=== PATIENT | male | born 1965 | race Caucasian/White ===

== ENCOUNTER 2017-02-04 22:55 | Emergency (ER) | payer OTHER ==
[~2017-02-04] VITALS: Ht 182.9 cm; Wt 117.9 kg
[~2017-02-04 22:55] MED LIST: AZITHROMYCIN250 MG PO; GUAIFENESIN-CO118 ML PO; IBUPROFEN600 MG PO; NORCO 5-325 TA1 EACH PO; OLANZAPINE20 MG PO; OMEPRAZOLE20 MG PO; PROVENTIL HFA6.7 GM INH; RISPERDAL1 MG PO; RISPERIDONE0.5 MG PO; SUCRALFATE1 GM PO; TRAMADOL HCL50 MG PO; WELLBUTRIN SR100 MG PO; ZITHROMAX250 MG PO; [UNRECOGNIZED DRUG - OTHER]
--- NOTE | 2017-02-05 06:44 | EKG ---
[facility] [address] [facility] [place] [address] Signed Sinus rhythm with premature atrial complexes Otherwise normal ECG No previous ECGs available Confirmed by FARHAT CONNELLY MD ([id number]) on 02/05/2017 6:44:06 AM Electronically Signed By: FARHAT CONNELLY MD 02/05/17 0644 PATIENT NAME: GLENDA OBRIEN Electrocardiogram DATE OF : 63 PHYSICIAN: FARHAT CONNELLY MD REPORT #: [id number] REPORT IS CONFIDENTIAL AND NOT TO BE RELEASED WITHOUT AUTHORIZATION
--- NOTE | 2017-02-05 14:50 | EKG ---
[facility] [address] [facility] [place] [address] Signed Normal sinus rhythm Normal ECG When compared with ECG of 04-FEB-2017 23:12, premature atrial complexes are no longer present Confirmed by FARHAT CONNELLY MD ([id number]) on 02/05/2017 2:50:18 PM Electronically Signed By: FARHAT CONNELLY MD 02/05/17 1450 PATIENT NAME: GLENDA OBRIEN MARY ANN Electrocardiogram DATE OF : 63 PHYSICIAN: FARHAT CONNELLY MD REPORT #: [id number] REPORT IS CONFIDENTIAL AND NOT TO BE RELEASED WITHOUT AUTHORIZATION
== END 2017-02-05 07:25 | disposition home or self-care (01) ==
LOC: ED 22:55
PROC: 4A0D7LZ Measurement of Urinary Volume, Via Natural or Artificial Opening (ICD-10-PCS; principal; 2017-02-04)
DX: T43.592A Poisoning by other antipsychotics and neuroleptics, intentional self-harm, initial encounter (principal); F31.9 Bipolar disorder, unspecified; F20.9 Schizophrenia, unspecified; F17.200 Nicotine dependence, unspecified, uncomplicated; Z88.0 Allergy status to penicillin; Z79.899 Other long term (current) drug therapy
CPT/HCPCS: 51798; 80053; 80176; 81001; 85025; 93005; 93010; 99284; G0480

== ENCOUNTER 2017-08-21 21:43 | Emergency (ER) | payer OTHER ==
[~2017-08-21] VITALS: Ht 182.9 cm; Wt 117.9 kg
[2017-08-21] MEDS ORDERED: PRAZOSIN HCL2 MG (22:04)
[2017-08-21] MEDS ORDERED: BUPROPION HCL100 MG (22:04)
[2017-08-21] MEDS ORDERED: PAIN RELIEF TA1 EACH (22:05)
[2017-08-21] MEDS ORDERED: NICODERM CQ1 EAC1 (22:06)
[2017-08-21] MEDS ORDERED: MULTI VITAMIN1 EACH (22:06)
[2017-08-21] MEDS ORDERED: NORCO 5-325 TA1 EACH PO (23:19)
== END 2017-08-21 23:31 | disposition home or self-care (01) ==
LOC: ED 21:43
DX: S93.401A Sprain of unspecified ligament of right ankle, initial encounter (principal); F17.200 Nicotine dependence, unspecified, uncomplicated; Z88.0 Allergy status to penicillin; Z79.899 Other long term (current) drug therapy; X58.XXXA Exposure to other specified factors, initial encounter; Y92.008 Other place in unspecified non-institutional (private) residence as the place of occurrence of the external cause
CPT/HCPCS: 73590; 73610; 99283

== ENCOUNTER 2018-06-16 13:07 | Emergency (ER) | payer OTHER ==
[~2018-06-16] VITALS: Ht 182.9 cm; Wt 104.8 kg
[~2018-06-16 13:07] MED LIST changes: +BUPROPION HCL100 MG; +MULTI VITAMIN1 EACH; +NICODERM CQ1 EAC1; +PAIN RELIEF TA1 EACH; +PRAZOSIN HCL2 MG
--- OUTSIDE RECORDS SUMMARY | 2018-06-16 13:10 | XMS ---
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 [phone] Care History Behavioral 08/26/2017 [facility] Redirected by [facility] team back to PCP for pain management. Enrolled in the Assertive Community Treatment program at [facility].\T\nbsp; Contact Deyanira Burris with behavioral health concerns. [phone] E.D. VIS[facility] COUNT (12 MO.) [facility] [address] [place] [address] TOTAL 3 NOTE: Visits indicate total known visits. ED/UCC VISIT TRACKING (12 MO.) 06/16/2018 13:07 [facility] [place] TYPE: Emergency COMPLAINT: - L RIB PAIN/INJURY 08/21/2017 21:44 [facility] [place] TYPE: Emergency COMPLAINT: - RT ANKLE/HEEL PAIN DIAGNOSES: - Other detention (current) drug therapy - Allergy status to penicillin - Pain in right ankle and joints of right foot - Other place in unspecified non-institutional (private) residence as the place of occurrence of the external cause - Exposure to other specified factors, initial encounter - Sprain of unspecified ligament of right ankle, initial encounter - Nicotine dependence, unspecified, uncomplicated [facility]2017 [facility] [place] DIAGNOSES: - Displaced pilon fracture of right tibia, initial encounter for closed fracture - Unspecified fall, initial encounter - Pain, unspecified - Ankle Injury INPATIENT VISIT TRACKING (12 MO.) 07/25/2017 06:42 [facility] [place] [facility] DIAGNOSES: - Closed displaced pilon fracture of right tibia, initial encounter (S82.168I) - Displaced oblique fracture of shaft of right tibia, initial encounter for closed fracture [email or web address]
[2018-06-16] MEDS ORDERED: ULTRAM50 MG PO (17:38)
== END 2018-06-16 17:45 | disposition home or self-care (01) ==
LOC: ED 13:07
DX: S20.212A Contusion of left front wall of thorax, initial encounter (principal); W00.9XXA Unspecified fall due to ice and snow, initial encounter; F17.200 Nicotine dependence, unspecified, uncomplicated; Z88.0 Allergy status to penicillin; Z79.899 Other long term (current) drug therapy; Z79.82 Long term (current) use of aspirin
CPT/HCPCS: 71101; 99284-25

== ENCOUNTER 2019-06-24 10:37 | Emergency (ER) | payer SELFPAY ==
[~2019-06-24] VITALS: Ht 182.9 cm; Wt 107.0 kg
[~2019-06-24 10:37] MED LIST changes: +ULTRAM50 MG PO
--- OUTSIDE RECORDS SUMMARY | 2019-06-24 10:40 | XMS ---
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 [phone] Care History Behavioral 08/26/2017 [facility] [place] Redirected by [facility] [facility] team back to PCP for pain management. Enrolled in the Assertive Community Treatment program at [facility].\T\nbsp; Contact Deyanira Burris with behavioral health concerns. [phone] Medical/Surgical 06/17/2018 [facility] - Patient is currently established with [facility]. If patient is seen in the ED during business hours. Please contact CHWs at [facility]. Care Recommendation: This patient has had 5 or more Emergency Department visits in the last 12 months.\T\nbsp; Patient requires education on the scope and purpose of the ED as an acute care provider not a Primary Care Provider and should not be utilized for chronic conditions.\T\nbsp; These are guidelines and the provider should exercise clinical judgment when providing care. E.D. VISIT COUNT (12 MO.) 1 [facility] TOTAL 1 NOTE: Visits indicate total known visits. ED/UCC VISIT TRACKING (12 MO.) 06/24/2019 10:37 [facility] [place] TYPE: Emergency COMPLAINT: - CHEST PAIN INPATIENT VISIT TRACKING (12 MO.) No inpatient visits to display in this time frame [email or web address]
--- NOTE | 2019-06-24 17:12 | EKG ---
[facility] [address] [facility] [place] [address] Signed Normal sinus rhythm Normal ECG When compared with ECG of 05-FEB-2017 06:43, No significant change was found Confirmed by ANURAG MATOS MD ([id number]) on 06/24/2019 5:12:41 PM Electronically Signed By: ANURAG MATOS MD 06/24/19 1712 PATIENT NAME: OBRIENGLENDA MARY ANN Electrocardiogram DATE OF : 63 PHYSICIAN: ANURAG MATOS MD REPORT #: [id number] REPORT IS CONFIDENTIAL AND NOT TO BE RELEASED WITHOUT AUTHORIZATION
== END 2019-06-24 12:28 | disposition home or self-care (01) ==
LOC: ED 10:37
DX: S20.212A Contusion of left front wall of thorax, initial encounter (principal); S00.81XA Abrasion of other part of head, initial encounter; W01.198A Fall on same level from slipping, tripping and stumbling with subsequent striking against other object, initial encounter; F31.9 Bipolar disorder, unspecified; F20.9 Schizophrenia, unspecified; F17.200 Nicotine dependence, unspecified, uncomplicated; Z88.0 Allergy status to penicillin
CPT/HCPCS: 70450; 71101; 80053; 84484; 85025; 93005; 93010; 99285-25; 99406; G0480

== ENCOUNTER 2020-05-17 10:46 | Emergency (ER) | payer OTHER ==
[~2020-05-17] VITALS: Ht 182.9 cm; Wt 120.2 kg
--- OUTSIDE RECORDS SUMMARY | 2020-05-17 10:50 | XMS ---
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 No recent Security Events currently on file CRITERIA MET - [facility] - Has Care Guidelines CARE PROVIDERS ADENIKE RODRIGUEZ Internal Medicine: Pulmonary Disease 06/17/2018-Current PHONE: Unknown Care Guidelines exist for the following facilities: [facility] ( 07/20/2019 ) Care History Medical/Surgical 06/25/2019 [facility] Unable to reach patient.\T\nbsp; No follow up scheduled at this time.\T\nbsp; Patient\T\#39;s O[employer] insurance is inactive.\T\nbsp; 06/17/2018 [facility] - Patient is currently established with [facility]. If patient is seen in the ED during business hours. Please contact CHWs at [facility]. Care Recommendation: This patient has had 5 or more Emergency Department visits in the last 12 months.\T\nbsp; Patient requires education on the scope and purpose of the ED as an acute care provider not a Primary Care Provider and should not be utilized for chronic conditions.\T\nbsp; These are guidelines and the provider should exercise clinical judgment when providing care. Behavioral 08/26/2017 [facility] [place] Redirected by [facility] team back to PCP for pain management. Enrolled in the Assertive Community Treatment program at [facility].\T\nbsp; Contact Deyanira Burris with behavioral health concerns. [phone] E.D. VISIT COUNT (12 MO.) 2 [facility] TOTAL 2 NOTE: Visits indicate total known visits. ED/UCC VISIT TRACKING (12 MO.) 05/17/2020 10:47 [facility] [place] TYPE: Emergency COMPLAINT: - L ARM INJURY 06/24/2019 10:[address] [facility] [place] TYPE: Emergency COMPLAINT: - CHEST PAIN DIAGNOSES: - Allergy status to penicillin - Contusion of left front wall of thorax, initial encounter - Nicotine dependence, unspecified, uncomplicated - Chest pain, unspecified - Fall on same level from slipping, tripping and stumbling with subsequent striking against other object, initial encounter - Abrasion of other part of head, initial encounter - Schizophrenia, unspecified - Bipolar disorder, unspecified INPATIENT VISIT TRACKING (12 MO.) No inpatient visits to display in this time frame [email or web address]
[2020-05-17] MEDS ORDERED: NAPROSYN500 MG PO (14:27)
[2020-05-17] MEDS ORDERED: ZOFRAN4 MG PO (14:27)
[2020-05-17] MEDS ORDERED: HYDROCODON-ACE1 EAC8 PO (14:27)
== END 2020-05-17 15:11 | disposition home or self-care (01) ==
LOC: ED 10:46
DX: S52.125A Nondisplaced fracture of head of left radius, initial encounter for closed fracture (principal); W01.198A Fall on same level from slipping, tripping and stumbling with subsequent striking against other object, initial encounter; F17.200 Nicotine dependence, unspecified, uncomplicated; Z88.0 Allergy status to penicillin
CPT/HCPCS: 29105; 73060; 73080; 73090; 99283-25